=== PATIENT | male | born 1965 | race Caucasian/White ===

== ENCOUNTER 2017-10-25 19:07 | Emergency (ER) | payer MEDICAID, OTHER ==
[2017-10-25] MEDS: HYDROCODONE/APAP (5/325) TAB PO (19:28)
== END 2017-10-25 21:58 | disposition home or self-care (01) ==
LOC: FTE 19:07
DX: S52.571A Other intraarticular fracture of lower end of right radius, initial encounter for closed fracture (principal); W11.XXXA Fall on and from ladder, initial encounter; Y92.9 Unspecified place or not applicable
CPT/HCPCS: 73030; 73030-RT; 73080-RT; 73090-RT; 73110-RT; 73130-RT; 73610; 73630-LT; 93971; 99284-25